=== PATIENT | female | born 1970 | race Caucasian/White ===

== ENCOUNTER 2017-06-19 17:21 | Emergency (ER) | payer MEDICAID ==
[~2017-06-19] VITALS: Ht 175.3 cm; Wt 94.0 kg
[2017-06-19 17:24] VITALS: BP 150/84
== END 2017-06-19 18:45 | disposition home or self-care (01) ==
LOC: ED 18:35
DX: Z76.0 Encounter for issue of repeat prescription (principal); L02.811 Cutaneous abscess of head [any part, except face]; E11.65 Type 2 diabetes mellitus with hyperglycemia; Z79.4 Long term (current) use of insulin; Z88.0 Allergy status to penicillin; Z88.8 Allergy status to other drugs, medicaments and biological substances
CPT/HCPCS: 99283

== ENCOUNTER 2018-08-19 20:13 | Emergency (ER) | payer MEDICAID ==
[~2018-08-19] VITALS: Ht 177.8 cm; Wt 86.0 kg
[2018-08-19 20:23] VITALS: BP 133/72
[2018-08-19] MEDS ORDERED: HYDROcodone/APAP 5/325 TABLET PO STA (21:08)
[2018-08-19] MEDS ORDERED: HYDROcodone/APAP 5/325 TABLET ONE (21:09)
[2018-08-19] MEDS ORDERED: LIDOCAINE-MPF 1%, 5ML ONE (21:32)
[2018-08-19] MEDS ORDERED: CLINDAMYCIN 300 MG CAPSULE ONE (22:05)
[2018-08-19] MEDS ORDERED: CLINDAMYCIN 300 MG CAPSULE PO ONE (22:30)
== END 2018-08-19 22:35 | disposition home or self-care (01) ==
LOC: ED 21:35
DX: K04.7 Periapical abscess without sinus (principal); E11.9 Type 2 diabetes mellitus without complications
CPT/HCPCS: 41800; 99283

== ENCOUNTER 2019-01-20 09:13 | Emergency (ER) | payer MEDICAID ==
[~2019-01-20] VITALS: Ht 177.8 cm; Wt 86.0 kg
[2019-01-20 09:19] VITALS: BP 136/76
[2019-01-20] MEDS ORDERED: HYDROcodone/APAP 5/325 TABLET PO ONE (10:00)
[2019-01-20] MEDS ORDERED: HYDROcodone/APAP 5/325 TABLET ONE (10:03)
== END 2019-01-20 11:24 | disposition home or self-care (01) ==
LOC: ED 09:41
DX: S22.31XA Fracture of one rib, right side, initial encounter for closed fracture (principal); E11.9 Type 2 diabetes mellitus without complications; X58.XXXA Exposure to other specified factors, initial encounter; Y93.89 Activity, other specified; Y92.009 Unspecified place in unspecified non-institutional (private) residence as the place of occurrence of the external cause; Y99.8 Other external cause status
CPT/HCPCS: 71046; 99283